=== PATIENT | male | born 1945 ===

== ENCOUNTER 2018-01-01 09:46 | Outpatient (CLI) | payer OTHER ==
[~2018-01-01 09:46] MED LIST: DICLOFENAC POTA50 MG PO; GABAPENTIN300 MG PO
== END 2018-01-01 09:58 | disposition home or self-care (01) ==
LOC: LAB 09:46
DX: R97.20 Elevated prostate specific antigen [PSA] (principal)

== ENCOUNTER → 2018-04-12 | Outpatient (CLI) | payer OTHER | END | disposition home or self-care (01) | LOC: SONOGRAMA 07:47 | DX: R97.20 Elevated prostate specific antigen [PSA] (principal) ==